=== PATIENT | male | born 2000 | race Hispanic/Latino ===

== ENCOUNTER 2023-07-31 19:10 | Emergency (ER) | payer SELFPAY ==
--- NOTE | ~2023-07-31 | XR_ITS ---
EXAMINATION: XR knee RT 3V DATE: 07/31/2023 20:21 INDICATION: Right knee injury. TECHNIQUE: 3 views of right knee were obtained. COMPARISON: None. FINDINGS: Bone alignment is normal. No fracture. There is mild tricompartmental osteoarthritis. No kn ee joint effusion. IMPRESSION: 1. Mild right knee osteoarthritis. Reviewed, dictated and finalized at location E.
[2023-07-31 19:50] VITALS: BP 140/72; PULSE 80; RESP 16; TEMP 36.6; O2SAT 99
--- NOTE | 2023-07-31 20:47 | ED.LOWEXIN ---
HPI - Extremity Injury (Lower) General Chief Complaint: Extremity Injury, Lower <Leigh Wynn PA-C - Last Filed: 07/31/23 20:52> Stated Complaint: right knee injury <MINDI Malone Last Filed: 07/31/23 20:52> Time Seen by Provider: 07/31/23 20:40 <Leigh Wynn PA-C - Last Filed: 07/31/23 20:52> History of Present Illness HPI Narrative: 22-year-old male presents to emergency department for right knee pain. States he was walking down steps today when he twisted his knee. Since then he has been having pain. States he has had chronic pain with this knee for approximately 1 year after an injury that occurred during soccer 1 year ago. States he has not been seen by an orthopedist. Denies other injuries acquired. <Leigh Wynn PA-C - Last Filed: 07/31/23 20:52> Related Data Allergies/Adverse Reactions: Allergies Allergy/AdvReac Type Severity Reaction Status Date / Time No Known Allergies Allergy Verified 07/31/23 20:40 <Leigh Wynn PA-C - Last Filed: 07/31/23 20:52> Review of Systems Review of Systems: CONSTITUTIONAL: Denies fever, chills, or sweats. EYES: Denies visual changes, redness, or discharge. ENT: Denies rhinorrhea, congestion, sore throat, or otalgia. CARDIOVASCULAR: Denies chest pain, palpitations, or edema. RESPIRATORY: Denies cough or dyspnea. GASTROINTESTINAL: Denies abdominal pain, nausea, vomiting, or diarrhea. GENITOURINARY: Denies dysuria or hematuria. SKIN: Denies rash or itching. MUSCULOSKELETAL see HPI NEUROLOGIC: Denies headache, numbness, or weakness. PSYCHIATRIC: Denies anxiety or depression. <MINDI Malone Last Filed: 07/31/23 20:52> Exam Narrative: GENERAL: Well-appearing, well-nourished, and in no acute distress. HEAD: Normocephalic, atraumatic. NECK: Supple. CHEST: Clear to auscultation. No respiratory distress. HEART: Regular rate and rhythm. No murmur heard. Normal peripheral pulses. EXTREMITIES: RLE: Mild lateral joint line tenderness to the knee. No tenderness to patella, posterior knee, medial joint line. No laxity appreciated. No edema, erythema or rash. Full active and passive range of motion. No tenderness remainder of lower extremity. DP pulse 2 +. Sensation intact. SKIN: Warm, dry, no rash. NEURO: No focal deficits. Alert and oriented x3 <Leigh Wynn PA-C - Last Filed: 07/31/23 20:52> Course WARD ATTENDANT/PA Physician Supervision I agree with midlevel documentation; I performed the medical decision making component of this evaluation. <Katheryn Trevizo MD - Last Filed: 08/01/23 04:17> Vital Signs Vital signs: Vital Signs Temperature 98 F 07/31/23 19:50 Pulse Rate 80 07/31/23 19:50 Respiratory Rate 16 07/31/23 19:50 Blood Pressure 140/72 07/31/23 19:50 Pulse Oximetry 99 07/31/23 19:50 Oxygen Delivery Room Air 07/31/23 19:50 Temperature 98 F 07/31/23 19:50 Pulse Rate 80 07/31/23 19:50 Respiratory Rate 16 07/31/23 19:50 Blood Pressure 140/72 07/31/23 19:50 Pulse Oximetry 99 07/31/23 19:50 Oxygen Delivery Room Air 07/31/23 19:50 <Leigh Wynn PA-C - Last Filed: 07/31/23 20:52> Vital Signs Temperature 98 F 07/31/23 19:50 Pulse Rate 80 07/31/23 19:50 Respiratory Rate 16 07/31/23 19:50 Blood Pressure 140/72 07/31/23 19:50 Pulse Oximetry 99 07/31/23 19:50 Oxygen Delivery Room Air 07/31/23 19:50 Temperature 98 F 07/31/23 19:50 Pulse Rate 80 07/31/23 19:50 Respiratory Rate 16 07/31/23 19:50 Blood Pressure 140/72 07/31/23 19:50 Pulse Oximetry 99 07/31/23 19:50 Oxygen Delivery Room Air 07/31/23 19:50 <Katheryn Trevizo MD - Last Filed: 08/01/23 04:17> MDM - Extremity Injury (Lower) MDM Narrative Medical decision making narrative: 22-year-old male presents to emergency department for right knee pain after he twisted it while walking on the stairs earlier today. Vital stable. He is
[2023-07-31] MEDS: IBUPROFEN 400 MG TABLET 800 MG PO (21:13)
[2023-07-31] MEDS: ACETAMINOPHEN 500 MG TABLET 1000 MG PO (21:13)
== END 2023-07-31 21:32 | disposition home or self-care (01) ==
LOC: ANHED 21:26
PROVIDERS: Emergency Provider Physician Assistant
DX: S83.91XA Sprain of unspecified site of right knee, initial encounter (principal); M17.11 Unilateral primary osteoarthritis, right knee; X50.1XXA Overexertion from prolonged static or awkward postures, initial encounter
CPT/HCPCS: 73562; 99283; A9270